=== PATIENT | male | born 1935 | race Caucasian/White ===

== ENCOUNTER 2018-05-09 09:35 | Emergency (ER) | payer OTHER ==
[~2018-05-09] VITALS: Ht 177.8 cm; Wt 81.6 kg
[2018-05-09 09:36] VITALS: Ht 177.8 cm; Wt 81.6 kg
[2018-05-09 10:16] LABS: CALCIUM 9.1 mg/dL (8.5-10.1); CARBON DIOXIDE 25.1 mmol/L (21-32); CHLORIDE SERUM 103 mmol/L (98-107); CREATININE SERUM 1.4 mg/dL (0.7-1.3); GLUCOSE SERUM 90 mg/dL (74-106); SODIUM SERUM 133 mmol/L (136-145)
[2018-05-09 10:19] LABS: BASOPHIL % 0.4 % (0-2); PLATELET COUNT 151 x10^3mcL (130-400); RED CELL DISTRIBUTION WIDTH 12.6 % (11.5-14.5)
[2018-05-09 10:25] LABS: ALBUMIN 3.6 g/dL (3.4-5.0); ALKALINE PHOSPHATASE 95 U/L (46-116); ALT/SGPT 26 U/L (16-63); AST/SGOT 37 U/L (15-37); BILIRUBIN TOTAL 1.52 mg/dL (0.20-1.00); CHOLESTEROL 149 mg/dL (<200); TOTAL PROTEIN, SERUM 6.6 g/dL (6.4-8.2)
[2018-05-09 12:57] VITALS: BP 137/91
== END 2018-05-09 12:57 | disposition home or self-care (01) ==
LOC: ED 09:35
PROVIDERS: Specialist
DX: R55 Syncope and collapse (principal); Z88.0 Allergy status to penicillin; Z88.2 Allergy status to sulfonamides
CPT/HCPCS: 36600; 82962; 83880; G0480; J7030; Q0092